=== PATIENT | female | born 1970 | race African-American/Black ===

== ENCOUNTER 2017-07-10 18:59 | Emergency (ER) | payer OTHER ==
[~2017-07-10] VITALS: Ht 175.3 cm; Wt 65.8 kg
--- NOTE | 2017-07-10 19:22 | PHYS DOC ---
Past Medical History Past Medical History: No Pertinent History Past Surgical History: Tubal ligation, Other Additional Past Surgical Histo: HERNIA REPAIR Additional Information: 1 PPD Alcohol Use: Rarely Drug Use: None Adult General Chief Complaint Chief Complaint: CHEST PAIN HPI HPI Patient is a 46 year old F who presents with chest pain. Patient states she was walking at a store and developed central chest pain with tightness nonradiating. Patient states she has no shortness of breath but is tachypnea. Patient denies any fevers. Patient denies any cardiac history. Patient denies any DVT or PE. Patient's only cardiac risk factor is smoking. EMS noticed the patient had elevated blood pressures and she states she does not take medication for blood pressure. Patient has no other complaints. Review of Systems Review of Systems GEN: Denies fevers, chills, sweats HEENT: Denies blurred vision, sore throat CV: Chest pain RESP: Denies shortness of air, cough GI: Denies n/v/d NEURO: Denies confusion, dizziness MSK: Denies weakness, joint pain/swelling All other systems were reviewed and found to be within normal limits, except as documented in this note. Current Medications Current Medications Current Medications Medications (Trade) Dose Ordered Sig/Sathya Start Time Stop Time Status Last Admin Dose Admin Albuterol/ Ipratropium (Duoneb) 3 ml 1X ONCE 07/10/17 21:15 07/10/17 21:16 DC 07/10/17 21:26 3 ML Info (Do NOT chart on this entry -- for MONITORING) 1 each PRN DAILY PRN 07/10/17 19:45 07/12/17 19:44 Iohexol (Omnipaque 300 Mg/ml) 75 ml 1X ONCE 07/10/17 19:45 07/10/17 19:46 DC 07/10/17 20:07 75 ML Lorazepam (Ativan) 1 mg 1X ONCE 07/10/17 21:30 07/10/17 21:31 DC 07/10/17 21:28 1 MG Allergies Allergies Allergies Coded Allergies Type Severity Reaction Last Updated Verified No Known Drug Allergies 07/23/15 No Physical Exam Physical Exam GEN.: mild distress. Alert and oriented. HEENT: Head is normocephalic, atraumatic NECK: Supple. LUNGS: CTAB, tachypnea HEART: RRR, S1, S2 present. Peripheral pulses intact ABDOMEN: Soft, nontender. Positive bowel sounds. EXTREMITIES: Without any cyanosis. NEUROLOGIC: Normal speech, normal tone PSYCHIATRIC: Normal affect, normal mood. SKIN: No ulcerations Current Patient Data Vital Signs Vital Signs Date Time Temp Pulse Resp B/P (MAP) Pulse Ox O2 Delivery O2 Flow Rate FiO2 07/10/17 21:30 100 Room Air 07/10/17 21:00 82 18 137/76 (96) 07/10/17 19:00 98.6 98.6 Lab Values Laboratory Tests Test 07/10/17 19:15 White Blood Count 7.7 x10^3/uL (4.0-11.0) Red Blood Count 4.47 x10^6/uL (3.50-5.40) Hemoglobin 13.8 g/dL (12.0-15.5) Hematocrit 40.4 % (36.0-47.0) Mean Corpuscular Volume 90 fL (79-100) Mean Corpuscular Hemoglobin 31 pg (25-35) Mean Corpuscular Hemoglobin Concent 34 g/dL (31-37) Red Cell Distribution Width 12.4 % (11.5-14.5) Platelet Count 343 x10^3/uL (140-400) Neutrophils (%) (Auto) 55 % (31-73) Lymphocytes (%) (Auto) 37 % (24-48) Monocytes (%) (Auto) 6 % (0-9) Eosinophils (%) (Auto) 1 % (0-3) Basophils (%) (Auto) 1 % (0-3) Neutrophils # (Auto) 4.2 x10^3uL (1.8-7.7) Lymphocytes # (Auto) 2.8 x10^3/uL (1.0-4.8) Monocytes # (Auto) 0.5 x10^3/uL (0.0-1.1) Eosinophils # (Auto) 0.1 x10^3/uL (0.0-0.7) Basophils # (Auto) 0.0 x10^3/uL (0.0-0.2) Sodium Level 142 mmol/L (136-145) Potassium Level 3.6 mmol/L (3.5-5.1) Chloride Level 103 mmol/L (98-107) Carbon Dioxide Level 28 mmol/L (21-32) Anion Gap 11 (6-14) Blood Urea Nitrogen 14 mg/dL (7-20) Creatinine 0.9 mg/dL (0.6-1.0) Estimated GFR (Cockcroft-Gault) 81.2 BUN/Creatinine Ratio 16 (6-20) Glucose Level 129 mg/dL (70-99) H Calcium Level 9.6 mg/dL (8.5-10.1) Total Bilirubin 0.8 mg/dL (0.2-1.0) Aspartate Amino Transferase (AST) 17 U/L (15-37) Alanine Aminotransferase (ALT) 20 U/L (14-59) Alkaline Phosphatase 93 U/L (46-116) Troponin I Quantitative < 0.017 ng/mL (0.000-0.055) Total Protein 7.6 g/dL (6.4-8.2) Albumin 4.1 g/dL (3.4-5.0) Albumin/Globulin Ratio 1.2 (1.0-1.7) Laboratory Tests 07/10/17 19:15 Laboratory Tests 07/10/17 19:15 EKG EKG 1908: EKG shows normal sinus rhythm rate of 85 no STEMI[] Radiology/Procedures Radiology/Procedures Chest x-ray NAD CTA of the chest IMPRESSION: 1. Significantly limited PE study secondary to suboptimal contrast bolus timing. No central or proximal right or left pulmonary artery PE. Evaluation of distal segmental and subsegmental pulmonary arteries is limited. 2. Spiculated opacity in the right lower lobe (8 mm). Follow-up CT chest in 3 months recommended.[] Course & Med Decision Making Course & Med Decision Making Pertinent Labs and Imaging studies reviewed. (See chart for details) ED course: Patient was seen and examined emergency room cardiac workup was ordered along with a CTA of the chest Patient was updated on lab results and CT findings, patient states she has still some chest tightness and would like a breathing treatment Patient feels slightly better after receiving a breathing treatment, along talk with the patient about cardiac risk factors and she is a heart score of 2 and discussed admission. Patient understands all risks and does not want to be admitted to the hospital for serial troponins and EKGs including and disability. Patient went to go home and follow up as an outpatient. Made patient aware of the 8 mm lung mass on the right lower lobe that'll need a repeat CT scan in 3 months. MDM: After reviewing the chart, CC/HPI/PMH, physical exam, [lab results], [ radiological results], I do not believe the patient is having an acute DC ( HEART score =2), PE, thoracic aortic dissection. On reevaluation patient still having some slight chest pain and offered the patient admission for serial EKGs and troponins however she declined understanding all risks including and disability. Patient was made aware of lung mass. Patient stable for discharge. Additional verbal discharge instructions were provided to the patient and that if symptoms get worse or any new symptoms arise that are worrisome to the patient she is to return to the emergency room immediately [] Dragon Disclaimer Dragon Disclaimer This electronic medical record was generated, in whole or in part, using a voice recognition dictation system. Departure Departure Impression: Primary Impression: Chest pain Disposition: 01 HOME, SELF-CARE Condition: IMPROVED Referrals: NO PCP (PCP) Patient Instructions: Chest Pain (Nonspecific) Additional Instructions: Please follow-up with your family doctor in the next one to 2 days return if symptoms increase you have a 8 mm right lower lobe lung mass that needs a repeat CT scan in 3 months DUARTE GORMAN DO Jul 10, 2017 19:22
[2017-07-10 19:24] LABS: BASO % 1 % (0-3); EOS % 1 % (0-3); HEMATOCRIT 40.4 % (36.0-47.0); HEMOGLOBIN 13.8 g/dL (12.0-15.5); LYMPH # 2.8 x10^3/uL (1.0-4.8); LYMPH % 37 % (24-48); MEAN CORPUSCULAR HEMOGLOBIN 31 pg (25-35); MEAN CORPUSCULAR HGB CONC 34 g/dL (31-37); MEAN CORPUSCULAR VOLUME 90 fL (79-100); MONO % 6 % (0-9); NEUT % 55 % (31-73); PLATELET COUNT 343 x10^3/uL (140-400); RED BLOOD COUNT 4.47 x10^6/uL (3.50-5.40); RED CELL DISTRIBUTION WIDTH 12.4 % (11.5-14.5); WHITE BLOOD COUNT 7.7 x10^3/uL (4.0-11.0)
[2017-07-10 19:34] LABS: CALCIUM 9.6 mg/dL (8.5-10.1); CREATININE 0.9 mg/dL (0.6-1.0); GFR 81.2; POTASSIUM 3.6 mmol/L (3.5-5.1)
[2017-07-10 19:40] LABS: ALBUMIN 4.1 g/dL (3.4-5.0); ALBUMIN/GLOBULIN RATIO 1.2 (1.0-1.7); TOTAL BILIRUBIN 0.8 mg/dL (0.2-1.0); TOTAL PROTEIN 7.6 g/dL (6.4-8.2)
[2017-07-10] MEDS ORDERED: CONTRAST GIVEN MC PRN (19:45)
[2017-07-10] MEDS ORDERED: IOHEXOL 300 MG/ML 100ML VIAL. IV ONE (19:45)
--- NOTE | 2017-07-10 20:52 | RAD ---
Indication: Central chest pain with tightness. No shortness of breath. Tachycardia. TECHNIQUE: CT angiogram of the chest with 75 mL of Omnipaque 300 with multiplanar MIP reformats. COMPARISON: None FINDINGS: Suboptimal PE study due to contrast bolus timing. No central or proximal right or left pulmonary artery filling defects. Heart is normal in size. No pericardial or pleural effusion. No axillary, mediastinal or hilar adenopathy. Mild emphysema. There is a 8 mm spiculated nodule in the right lower lobe. No focal consolidations. Visualized sections through the liver, gallbladder, spleen, pancreas, adrenals are within normal limits. Punctate calcifications in the liver and spleen suggesting healed granulomatous disease. No suspicious bony lesion. IMPRESSION: 1. Significantly limited PE study secondary to suboptimal contrast bolus timing. No central or proximal right or left pulmonary artery PE. Evaluation of distal segmental and subsegmental pulmonary arteries is limited. 2. Spiculated opacity in the right lower lobe (8 mm). Follow-up CT chest in 3 months recommended. Electronically signed by: Santos Scanlon DO (07/10/2017 8:48 PM) [facility]
[2017-07-10] MEDS ORDERED: IPRATRPIUM/ALBUTEROL 0.5/2.5MG 3 ML NEBU. NEB ONE (21:15)
[2017-07-10] MEDS ORDERED: LORazepam 1 MG TABLET PO ONE (21:30)
[2017-07-10 22:10] VITALS: BP 129/77
--- NOTE | 2017-07-11 08:11 | RAD ---
AP PORTABLE CHEST Clinical Indication: cp. Shortness of breath x1 day Comparison: None. Findings: The cardiomediastinal silhouette is normal. Lungs are clear. There is no pneumothorax. No pleural effusion is appreciated. There is no acute bone abnormality. IMPRESSION: No acute cardiopulmonary process.
--- NOTE | 2017-07-11 12:58 | EKG ---
[facility] [address] [place] [address] Test Date: 2017-07-10 Test Time: 19:05:53 Pat Name: ARTIS BUSH Department: Room: Gender: F [employer] Control Clerk: : 1970 Requested By: DUARTE GORMAN Order Number: [id number] Reading MD: Robel Espinoza Measurements Intervals [place] Rate: 85 P: 0 AL: 132 QRS: 23 QRSD: 84 T: 46 QT: 362 QTc: 436 Interpretive Statements SINUS RHYTHM MILD NONSPECIFIC ST-T WAVE CHANGES. RI6.01 No previous ECG available for comparison Electronically Signed On 07-13-2017 16:54:08 BILL CUTTER by Robel Espinoza
== END 2017-07-10 22:31 | disposition home or self-care (01) ==
LOC: ER 18:59
DX: R07.89 Other chest pain (principal); I10 Essential (primary) hypertension; F17.200 Nicotine dependence, unspecified, uncomplicated
CPT/HCPCS: 36415; 71010; 71275; 80053; 84484; 85025; 93005; 94250; 94640; 99285; J7620; Q9967

== ENCOUNTER 2019-05-26 12:32 | Emergency (ER) | payer SELFPAY ==
[~2019-05-26] VITALS: Ht 170.2 cm; Wt 68.0 kg
[2019-05-26] MEDS ORDERED: ONDANSETRON PF 4 MG/2 ML VIAL. IVP ONE (13:30)
[2019-05-26] MEDS ORDERED: fentaNYL PF VIAL 100 MCG/2 ML VIAL IVP ONE (13:30)
[2019-05-26 13:31] LABS: BILIRUBIN,URINE NEGATIVE (NEG); CLARITY,URINE CLEAR; COLOR,URINE YELLOW; NITRITE,URINE NEGATIVE (NEG); PROTEIN,URINE NEGATIVE (NEG-TRACE); UROBILINOGEN,URINE 0.2 mg/dL (0.2 mg/dL)
[2019-05-26 13:42] LABS: BASO # 0.1 x10^3/uL (0.0-0.2); BASO % 1 % (0-3); EOS # 0.2 x10^3/uL (0.0-0.7); EOS % 2 % (0-3); HEMATOCRIT 41.3 % (36.0-47.0); HEMOGLOBIN 14.4 g/dL (12.0-15.5); LYMPH # 2.4 x10^3/uL (1.0-4.8); LYMPH % 37 % (24-48); MEAN CORPUSCULAR HEMOGLOBIN 32 pg (25-35); MEAN CORPUSCULAR HGB CONC 35 g/dL (31-37); MEAN CORPUSCULAR VOLUME 91 fL (79-100); MONO # 0.4 x10^3/uL (0.0-1.1); MONO % 6 % (0-9); NEUT # 3.4 x10^3/uL (1.8-7.7); NEUT % 54 % (31-73); PLATELET COUNT 336 x10^3/uL (140-400); RED BLOOD COUNT 4.53 x10^6/uL (3.50-5.40); WHITE BLOOD COUNT 6.3 x10^3/uL (4.0-11.0)
[2019-05-26 13:56] LABS: SQUAMOUS EPITHELIAL CELL,UR MOD /LPF
[2019-05-26 13:56] LABS: CALCIUM 9.5 mg/dL (8.5-10.1); CREATININE 0.9 mg/dL (0.6-1.0); GFR 80.5; POTASSIUM 4.1 mmol/L (3.5-5.1)
[2019-05-26 13:57] LABS: AMORPHOUS SEDIMENT,UR PRESENT /HPF; BACTERIA,URINE FEW /HPF (0-FEW); RBC,URINE 0 /HPF (0-2)
[2019-05-26 14:03] LABS: ALBUMIN 3.8 g/dL (3.4-5.0); TOTAL BILIRUBIN 0.8 mg/dL (0.2-1.0); TOTAL PROTEIN 7.8 g/dL (6.4-8.2)
[2019-05-26] MEDS ORDERED: IOHEXOL 300 MG/ML 100ML VIAL. IV ONE (15:30)
--- NOTE | 2019-05-26 15:49 | PHYS DOC ---
Past Medical History Past Medical History: High Cholesterol, Other Additional Past Medical Histor: liver injury Past Surgical History: Tubal ligation, Other Additional Past Surgical Histo: HERNIA REPAIR Additional Information: 1 pack/day Alcohol Use: Occasionally Additional Information: states she "drinks regularly" Drug Use: Marijuana Adult General Chief Complaint Chief Complaint: ABDOMINAL PAIN HPI HPI Patient is a 48 year old female with history of abdominal wall mesh hernia repair who presents lower abdominal pain localized over hernia repair site. Patient reports tenderness to palpation. No nausea vomiting or diarrhea. No constipation. No urinary frequency urgency. No other acute symptoms or complaints. Hernia repair was performed several years ago at [facility]. Patient reports occasional pain over her hernia site but denies complications. [] Review of Systems Review of Systems ROS as per HPI. All other systems were reviewed and found to be within normal limits, except as documented in this note. Current Medications Current Medications Current Medications Medications (Trade) Dose Ordered Sig/Sathya Start Time Stop Time Status Last Admin Dose Admin Fentanyl Citrate (Fentanyl 2ml Vial) 75 mcg 1X ONCE 05/26/19 13:30 05/26/19 13:32 DC 05/26/19 13:44 75 MCG Iohexol (Omnipaque 300 Mg/ml) 75 ml 1X ONCE 05/26/19 15:30 05/26/19 15:31 DC 05/26/19 15:37 75 ML Ondansetron HCl (Zofran) 4 mg 1X ONCE 05/26/19 13:30 05/26/19 13:32 DC 05/26/19 13:44 4 MG Allergies Allergies Allergies Coded Allergies Type Severity Reaction Last Updated Verified No Known Drug Allergies 07/23/15 No Physical Exam Physical Exam Constitutional: Well developed, well nourished, no acute distress, non-toxic appearance. [] HENT: Normocephalic, atraumatic, bilateral external ears normal, oropharynx moist, no oral exudates, nose normal. [] Eyes: PERRLA, EOMI, conjunctiva normal, no discharge. [] Neck: Normal range of motion, no tenderness, supple, no stridor. [] Cardiovascular:Heart rate regular rhythm, no murmur [] Lungs & Thorax: Bilateral breath sounds clear to auscultation [] Abdomen: Bowel sounds normal, soft, localized pain over lower midline ttp, no rebound rigidity or guarding. [] Skin: Warm, dry, no erythema, no rash. [] Back: No tenderness, no CVA tenderness. [] Neurologic: Alert and oriented X 3, normal motor function, normal sensory function, no focal deficits noted. [] Psychologic: Affect normal, judgement normal, mood normal. [] Current Patient Data Vital Signs Vital Signs Date Time Temp Pulse Resp B/P (MAP) Pulse Ox O2 Delivery O2 Flow Rate FiO2 05/26/19 15:22 70 18 106/79 (88) 98 Room Air 05/26/19 12:50 98.2 98.2 Lab Values Laboratory Tests Test 05/26/19 12:50 05/26/19 13:29 Urine Collection Type Unknown Urine Color Yellow Urine Clarity Clear Urine pH 5.0 Urine Specific [place] 1.015 Urine Protein Negative mg/dL (NEG-TRACE) Urine Glucose (UA) Negative mg/dL (NEG) Urine Ketones (Stick) Negative mg/dL (NEG) Urine Blood Negative (NEG) Urine Nitrite Negative (NEG) Urine Bilirubin Negative (NEG) Urine Urobilinogen Dipstick 0.2 mg/dL (0.2 mg/dL) Urine Leukocyte Esterase Negative (NEG) Urine RBC 0 /HPF (0-2) Urine WBC 1-4 /HPF (0-4) Urine Squamous Epithelial Cells Mod /LPF Urine Amorphous Sediment Present /HPF Urine Bacteria Few /HPF (0-FEW) Urine Mucus Mod /LPF White Blood Count 6.3 x10^3/uL (4.0-11.0) Red Blood Count 4.53 x10^6/uL (3.50-5.40) Hemoglobin 14.4 g/dL (12.0-15.5) Hematocrit 41.3 % (36.0-47.0) Mean Corpuscular Volume 91 fL (79-100) Mean Corpuscular Hemoglobin 32 pg (25-35) Mean Corpuscular Hemoglobin Concent 35 g/dL (31-37) Red Cell Distribution Width 13.0 % (11.5-14.5) Platelet Count 336 x10^3/uL (140-400) Neutrophils (%) (Auto) 54 % (31-73) Lymphocytes (%) (Auto) 37 % (24-48) Monocytes (%) (Auto) 6 % (0-9) Eosinophils (%) (Auto) 2 % (0-3) Basophils (%) (Auto) 1 % (0-3) Neutrophils # (Auto) 3.4 x10^3/uL (1.8-7.7) Lymphocytes # (Auto) 2.4 x10^3/uL (1.0-4.8) Monocytes # (Auto) 0.4 x10^3/uL (0.0-1.1) Eosinophils # (Auto) 0.2 x10^3/uL (0.0-0.7) Basophils # (Auto) 0.1 x10^3/uL (0.0-0.2) Sodium Level 145 mmol/L (136-145) Potassium Level 4.1 mmol/L (3.5-5.1) Chloride Level 108 mmol/L (98-107) H Carbon Dioxide Level 29 mmol/L (21-32) Anion Gap 8 (6-14) Blood Urea Nitrogen 14 mg/dL (7-20) Creatinine 0.9 mg/dL (0.6-1.0) Estimated GFR (Cockcroft-Gault) 80.5 BUN/Creatinine Ratio 16 (6-20) Glucose Level 92 mg/dL (70-99) Calcium Level 9.5 mg/dL (8.5-10.1) Total Bilirubin 0.8 mg/dL (0.2-1.0) Aspartate Amino Transferase (AST) 18 U/L (15-37) Alanine Aminotransferase (ALT) 23 U/L (14-59) Alkaline Phosphatase 99 U/L (46-116) Total Protein 7.8 g/dL (6.4-8.2) Albumin 3.8 g/dL (3.4-5.0) Albumin/Globulin Ratio 1.0 (1.0-1.7) Lipase 221 U/L (73-393) Laboratory Tests 05/26/19 13:29 Laboratory Tests 05/26/19 13:29 EKG EKG [] Radiology/Procedures Radiology/Procedures [CT abdomen pelvis: Possible cholecystitis of distal colon. Ovarian cyst. No other acute symptoms or complaints.] Course & Med Decision Making Course & Med Decision Making Pertinent Labs and Imaging studies reviewed. (See chart for details) [Symptoms improved with treatment. Abdomen remains soft, nonsurgical. Tingling in labs nondiagnostic. Recommend supportive care with PCP follow-up. Patient has not established with a PCP and received routine medical care in the past 22 years. She is currently uninsured. I provided a list of low-cost insurance clinics to follow-up. In the meantime I will treat supportively. Return precautions reviewed. Patient verbalizes understanding and agreement discharge instructions prior to departure.] Dragon Disclaimer Dragon Disclaimer This electronic medical record was generated, in whole or in part, using a voice recognition dictation system. Departure Departure Impression: Primary Impression: Abdominal pain Disposition: HOME, SELF-CARE Condition: IMPROVED Referrals: NO PCP (PCP) Patient Instructions: Abdominal Pain Additional Instructions: You were evaluated in the ED for abdominal pain. Imaging studies were performed and are nondiagnostic. Please take naproxen for pain and tramadol as needed for additional relief. Follow-up with local primary care physician on the list provided to you. Return to the ED if new or worsening symptoms Scripts Tramadol Hcl (TRAMADOL HCL) 50 Mg Tablet 50 MG PO Q6H PRN for PAIN for 3 Days, #15 TAB 0 Refills Prov: ÁNGEL CLEMENT DO 05/26/19 ÁNGEL CLEMENT DO May 26, 2019 15:49
--- NOTE | 2019-05-26 15:56 | RAD ---
CT ABD PELV W/ IV CONTRST ONLY Indication: Lower abdominal pain Technique: Postcontrast CT imaging was performed of the abdomen pelvis, multiplanar reconstruction images submitted. No oral contrast was given. One or more of the following individualized dose reduction techniques were utilized for this examination: 1. Automated exposure control 2. Adjustment of the mA and/or kV according to patient size 3. Use of iterative reconstruction technique. Comparison: None Findings: There are couple small thin-walled air cysts of the visualized lung bases, also minimal atelectasis left lower lobe. There are a few splenic granulomas. No focal abnormality is identified of the liver. There is faint visualization of pancreatic duct, otherwise no significant focal abnormality identified. Gallbladder is present without obvious intraluminal abnormality by CT. Both kidneys enhance, no hydronephrosis. There is a hypodense lesion of the inferior left kidney about 1.3 cm, density measurements of a cyst at 15 Hounsfield units. There is no adrenal nodularity. Accurate evaluation of bowel is limited without oral contrast. There is no bowel dilatation, free air, free fluid. Normal appendix is visualized, no adjacent inflammatory change. Not associated with significant adjacent inflammatory change, mild wall thickening of the distal descending colon and proximal sigmoid colon is not excluded. There is mild gas distention of the rectum. There is [id number] degenerative disc disease at L4-5, to lesser degree at L3-4 and L5-S1.. IMPRESSION: 1. No significant inflammatory change is identified, no CT evidence of acute appendicitis. There could be mild wall thickening of the distal descending colon and proximal sigmoid colon which could be seen with mild colitis in the appropriate clinical setting. There is some gas distention of the rectum. 2. There is inferior left renal cyst. Electronically signed by: Micheal Diaz MD (05/26/2019 3:53 PM) [facility]
[2019-05-26] MEDS ORDERED: TRAM50TA PO (16:25)
[2019-05-26 17:00] VITALS: BP 139/75
== END 2019-05-26 17:04 | disposition home or self-care (01) ==
LOC: ER 12:32
DX: R10.30 Lower abdominal pain, unspecified (principal); E78.00 Pure hypercholesterolemia, unspecified; F17.200 Nicotine dependence, unspecified, uncomplicated; Z98.51 Tubal ligation status; Z98.890 Other specified postprocedural states
CPT/HCPCS: 36415; 74177; 80053; 81001; 83690; 85025; 96374; 96375; 99285; J2405; J3010; Q9967